=== PATIENT | male | born 1990 | race Hispanic/Latino ===

== ENCOUNTER 2024-08-01 06:32 | Inpatient (IN) | payer OTHER ==
[2024-08-01] VITALS (11 sets, daily range): BP systolic 128–155; BP diastolic 55–82; PULSE 81–115; RESP 18–20; TEMP 97.8–101.6; O2SAT 94–100
[~2024-08-01] VITALS: Ht 170.2 cm; Wt 167.8 kg
[2024-08-01] MEDS: ONDANSETRON HCL INJ 2MG/ML 2ML 2 MG/ML VIAL IV PRN (06:53)
[2024-08-01] MEDS: SODIUM CHLORIDE 0.9% 1000ML 1,000 ML IV STA (06:55)
[2024-08-01] MEDS: ONDANSETRON HCL 4 MG ORAL DISINTEGRATING TAB PO ONE (06:55)
[2024-08-01 07:00] LABS: BASOPHILS % 0.2 % (0.0-1.0); EOSINOPHILS # (AUTO) 0.2 (0.0-0.4); EOSINOPHILS % 1.8 % (0.0-6.0); HEMATOCRIT 44.4 % (38.2-49.6); HEMOGLOBIN 14.1 g/dL (14.0-18.0); LYMPHOCYTES % 7.7 % (18.0-39.1); MEAN CORPUSCULAR HEMOGLOBIN 32.1 pg (28-32); MEAN CORPUSCULAR HGB CONC 31.8 g/dL (31-35); MEAN CORPUSCULAR VOLUME 101.1 fL (81-99); MONOCYTES # (AUTO) 0.6 (0.2-0.8); MONOCYTES % 4.8 % (4.4-11.3); NEUTROPHILS # (AUTO) 10.7 (2.1-6.9); NEUTROPHILS % 85.1 % (38.7-80.0); PLATELET COUNT 144 x10e3/uL (140-360); RED BLOOD COUNT 4.39 x10e6/uL (4.3-5.7); RED CELL DISTRIBUTION WIDTH 12.5 % (11.7-14.4); WHITE BLOOD COUNT 12.55 x10e3/uL (4.8-10.8)
[2024-08-01 07:21] LABS: ALBUMIN 3.4 g/dL (3.5-5.0); ALBUMIN/GLOBULIN RATIO 0.6 (0.8-2.0); ANION GAP 22.5 mmol/L (8-16); BILIRUBIN,TOTAL 1.1 mg/dL (0.2-1.2); CALCIUM 9.3 mg/dL (8.4-10.2); CREATININE, SERUM 0.81 mg/dL (0.72-1.25); POTASSIUM 3.5 mmol/L (3.5-5.1)
[2024-08-01] MEDS ORDERED: IOPAMIDOL 370 MG/ML 100 ML INFUS..BTL INJ ONE (07:26)
[2024-08-01] MEDS: HALOPERIDOL LACTATE 5 MG/ML VIAL IV ONE (08:34)
[2024-08-01] MEDS ORDERED: BELLADONNA ALK/PHENOBARBITAL 5 ML UDC ONE (08:43)
[2024-08-01] MEDS: LIDOCAINE VISC 2% SOLN 15 ML UDC PO ONE (08:49)
[2024-08-01] MEDS: BELLADONNA ALK/PHENOBARBITAL 5 ML UDC PO STA (08:49)
[2024-08-01] MEDS: MAGNESIUM/ALUMINUM/SIMETHICONE 30 ML UDC PO ONE (08:49)
[2024-08-01] MEDS ORDERED: HEPARIN SOD/DEXTROSE 5% 25000 UNIT/250 ML BAG IV SCH (09:00)
[2024-08-01 09:15] LABS: INR 1.09; PROTHROMBIN TIME 14.8 seconds (11.9-14.5)
[2024-08-01] MEDS ORDERED: ONDANSETRON HCL INJ 2MG/ML 2ML 2 MG/ML VIAL IV PRN (09:15)
[2024-08-01] MEDS ORDERED: Morphine 4mg INJECTION 4 MG/ML INJ IV PRN (09:15)
[2024-08-01] MEDS: HEPARIN 25,000 UNIT/D5W 250ML 250 ML IV SCH (10:23)
[2024-08-01] MEDS ORDERED: SIMETHICONE 80 MG CHEW PO PRN (13:45)
[2024-08-01] MEDS ORDERED: POTASSIUM CHLORIDE 20 MEQ TAB CR PO PRN (13:45)
[2024-08-01] MEDS ORDERED: ALBUTEROL/IPRATROPIUM 3 ML NEB NEB PRN (13:45)
[2024-08-01] MEDS ORDERED: HYDRALAZINE HCL 20 MG/ML VIAL IV PRN (13:45)
[2024-08-01] MEDS ORDERED: ACETAMINOPHEN 325 MG TAB PO PRN (13:45)
[2024-08-01] MEDS ORDERED: LIDOCAINE 4% PATCH TP PRN (13:45)
[2024-08-01] MEDS ORDERED: DOCUSATE SODIUM 100 MG CAP PO PRN (13:45)
[2024-08-01] MEDS: METOCLOPRAMIDE HCL 10 MG/2ML VIAL IV SCH (14:15)
[2024-08-01] MEDS ORDERED: CHLORDIAZEPOXIDE HCL 25 MG CAP PO PRN (14:15)
[2024-08-01] MEDS ORDERED: DEXTROSE 50% SYRINGE 50 ML IV PRN (14:30)
[2024-08-01 14:45] LABS: OPIATES SCREEN,URINE NEGATIVE (NEGATIVE); PHENCYCLIDINE SCREEN,URINE NEGATIVE (NEGATIVE)
[2024-08-01 14:46] LABS: AMPHETAMINES SCREEN,URINE NEGATIVE (NEGATIVE); BENZODIAZEPINES SCREEN,URINE NEGATIVE (NEGATIVE); CANNABINOIDS SCREEN,URINE NEGATIVE (NEGATIVE); COCAINE SCREEN,URINE NEGATIVE (NEGATIVE); METHADONE SCREEN, URINE NEGATIVE (NEGATIVE)
[2024-08-01] MEDS ORDERED: MULTIVITAMINS- 12 INJECTION 10 ML, FOLIC ACID MDV 1 MG, THIAMINE HCL INJ 100 MG in SODI... IV SCH ×2 (15:30→18:00)
[2024-08-01] MEDS: INSULIN LISPRO 100 UNIT/1 ML 3ML VIAL SQ SCH (16:30)
[2024-08-01 16:56] LABS: CALCIUM 8.9 mg/dL (8.4-10.2); CREATININE, SERUM 0.78 mg/dL (0.72-1.25)
[2024-08-01] MEDS: MULTIVITAMINS- 12 INJECTION 10 ML, FOLIC ACID MDV 1 MG, THIAMINE HCL INJ 100 MG in SODI... IV SCH (17:41)
[2024-08-01] MEDS: SUCRALFATE 1 GM/10 ML SUSP PO SCH (17:41)
[2024-08-01] MEDS ORDERED: SODIUM CHLORIDE 0.9% 1000ML 1,000 ML IV PRN (19:15)
[2024-08-02] VITALS (8 sets, daily range): BP systolic 108–164; BP diastolic 49–83; PULSE 81–99; RESP 18–21; TEMP 98.6–101; O2SAT 94–96
[2024-08-02] MEDS: HEPARIN 25,000 UNIT/D5W 250ML 250 ML IV SCH ×2 (01:43→17:38)
[2024-08-02] MEDS ORDERED: PANTOPRAZOLE SOD 40 MG TABEC PO SCH (07:30)
[2024-08-02 08:33] LABS: BASOPHILS % 0.1 % (0.0-1.0); EOSINOPHILS % 0.4 % (0.0-6.0); HEMOGLOBIN 12.3 g/dL (14.0-18.0); MEAN CORPUSCULAR HEMOGLOBIN 31.9 pg (28-32); MEAN CORPUSCULAR HGB CONC 31.5 g/dL (31-35); MEAN CORPUSCULAR VOLUME 101.3 fL (81-99); MONOCYTES # (AUTO) 0.9 (0.2-0.8); NEUTROPHILS # (AUTO) 6.1 (2.1-6.9); NEUTROPHILS % 76.1 % (38.7-80.0); PLATELET COUNT 114 x10e3/uL (140-360); RED BLOOD COUNT 3.85 x10e6/uL (4.3-5.7); RED CELL DISTRIBUTION WIDTH 12.8 % (11.7-14.4); WHITE BLOOD COUNT 8.07 x10e3/uL (4.8-10.8)
[2024-08-02 09:00] LABS: ALBUMIN/GLOBULIN RATIO 0.7 (0.8-2.0); ANION GAP 15.4 mmol/L (8-16); BILIRUBIN,TOTAL 1.9 mg/dL (0.2-1.2); CALCIUM 7.8 mg/dL (8.4-10.2); CREATININE, SERUM 0.74 mg/dL (0.72-1.25); MAGNESIUM 1.4 MG/DL (1.3-2.1); TOTAL PROTEIN 7.4 g/dL (6.5-8.1)
[2024-08-02 09:01] LABS: POTASSIUM 3.4 mmol/L (3.5-5.1)
[2024-08-02 09:09] LABS: CHOL/HDL RATIO 5.2 (3.9-4.7)
[2024-08-02] MEDS ORDERED: IOPAMIDOL 370 MG/ML 100 ML INFUS..BTL INJ ONE (14:34)
[2024-08-02] MEDS ORDERED: SODIUM CHLORIDE 0.9% 100 ML ONE (14:34)
[2024-08-02] MEDS: POTASSIUM PHOSPHATE 15 MM in SODIUM CHLORIDE 0.9% 250ML 250 ML IV ONE (15:38)
[2024-08-02] MEDS: MAGNESIUM SULFATE 2GM/50ML 50 ML IV ONE (15:39)
[2024-08-02] MEDS ORDERED: HEPARIN SOD/DEXTROSE 5% 25000 UNIT/250 ML BAG IV SCH (17:15)
[2024-08-02] MEDS: CARVEDILOL 12.5 MG TAB PO SCH (17:19)
[2024-08-02] MEDS: MULTIVITAMINS- 12 INJECTION 10 ML, FOLIC ACID MDV 1 MG, THIAMINE HCL INJ 100 MG in SODI... IV SCH (17:35)
[2024-08-02] MEDS ORDERED: APIXABAN 5 MG TABLET PO SCH (18:00)
[2024-08-02 20:45] LABS: BASOPHILS % 0.4 % (0.0-1.0); EOSINOPHILS # (AUTO) 0.1 (0.0-0.4); EOSINOPHILS % 1.6 % (0.0-6.0); HEMATOCRIT 35.1 % (38.2-49.6); HEMOGLOBIN 10.7 g/dL (14.0-18.0); LYMPHOCYTES # (AUTO) 0.8 (1.0-3.2); MEAN CORPUSCULAR HEMOGLOBIN 31.4 pg (28-32); MEAN CORPUSCULAR HGB CONC 30.5 g/dL (31-35); MEAN CORPUSCULAR VOLUME 102.9 fL (81-99); MONOCYTES # (AUTO) 0.7 (0.2-0.8); MONOCYTES % 11.9 % (4.4-11.3); NEUTROPHILS % 71.9 % (38.7-80.0); PLATELET COUNT 96 x10e3/uL (140-360); RED BLOOD COUNT 3.41 x10e6/uL (4.3-5.7); RED CELL DISTRIBUTION WIDTH 12.8 % (11.7-14.4); WHITE BLOOD COUNT 5.56 x10e3/uL (4.8-10.8)
[2024-08-02 21:08] LABS: INR 1.46; PROTHROMBIN TIME 18.5 seconds (11.9-14.5)
[2024-08-02] MEDS: DIPHENHYDRAMINE HCL 25 MG CAP PO PRN (23:34)
[2024-08-02] MEDS: MELATONIN 5 MG TABLET PO PRN (23:35)
[2024-08-03] VITALS (8 sets, daily range): BP systolic 105–130; BP diastolic 56–76; PULSE 69–90; RESP 18–20; TEMP 98.1–99.7; O2SAT 94–98
[2024-08-03 05:41] LABS: ALBUMIN 2.7 g/dL (3.5-5.0); ALBUMIN/GLOBULIN RATIO 0.6 (0.8-2.0); BILIRUBIN,TOTAL 1.4 mg/dL (0.2-1.2); CALCIUM 7.4 mg/dL (8.4-10.2); CREATININE, SERUM 0.71 mg/dL (0.72-1.25)
[2024-08-03 06:01] LABS: MAGNESIUM 1.9 MG/DL (1.3-2.1); PHOSPHORUS 2.2 MG/DL (2.3-4.7)
[2024-08-03] MEDS: HEPARIN 25,000 UNIT/D5W 250ML 250 ML IV SCH ×2 (06:13→13:08)
[2024-08-03] MEDS ORDERED: POTASSIUM PHOSPHATE 15 MM in SODIUM CHLORIDE 0.9% 250ML 250 ML IV SCH (09:45)
[2024-08-03] MEDS: POTASSIUM PHOSPHATE 15 MM in SODIUM CHLORIDE 0.9% 250ML 250 ML IV ONE (11:11)
[2024-08-03] MEDS: DICYCLOMINE HCL 10 MG CAP PO SCH (17:39)
[2024-08-03] MEDS: POTASSIUM CHLORIDE 20 MEQ TAB CR PO ONE (17:40)
[2024-08-03 20:35] LABS: % IRON SATURATION 15 % (15-50); IRON 66 ug/dL (65-175); TOTAL IRON BINDING CAPACITY 428 ug/dL (261-478); TRANSFERRIN 306 mg/dL (174-364)
[2024-08-03] MEDS: DICYCLOMINE HCL 20 MG TAB PO SCH (22:08)
[2024-08-04 04:00] VITALS: BP 132/80; PULSE 74; RESP 20; TEMP 98; O2SAT 99
[2024-08-04 05:27] LABS: BASOPHILS % 0.3 % (0.0-1.0); EOSINOPHILS # (AUTO) 0.2 (0.0-0.4); EOSINOPHILS % 2.4 % (0.0-6.0); HEMATOCRIT 36.6 % (38.2-49.6); HEMOGLOBIN 11.6 g/dL (14.0-18.0); LYMPHOCYTES # (AUTO) 1.3 (1.0-3.2); MEAN CORPUSCULAR HEMOGLOBIN 31.7 pg (28-32); MEAN CORPUSCULAR HGB CONC 31.7 g/dL (31-35); MONOCYTES # (AUTO) 0.6 (0.2-0.8); MONOCYTES % 8.5 % (4.4-11.3); NEUTROPHILS # (AUTO) 5.1 (2.1-6.9); NEUTROPHILS % 70.4 % (38.7-80.0); PLATELET COUNT 125 x10e3/uL (140-360); RED BLOOD COUNT 3.66 x10e6/uL (4.3-5.7); RED CELL DISTRIBUTION WIDTH 12.8 % (11.7-14.4); WHITE BLOOD COUNT 7.18 x10e3/uL (4.8-10.8)
[2024-08-04 06:05] LABS: ALBUMIN 2.9 g/dL (3.5-5.0); ALBUMIN/GLOBULIN RATIO 0.7 (0.8-2.0); ANION GAP 13.3 mmol/L (8-16); BILIRUBIN,TOTAL 1.3 mg/dL (0.2-1.2); CALCIUM 7.9 mg/dL (8.4-10.2); CREATININE, SERUM 0.67 mg/dL (0.72-1.25); TOTAL PROTEIN 7.1 g/dL (6.5-8.1)
[2024-08-04 06:08] LABS: POTASSIUM 3.3 mmol/L (3.5-5.1)
[2024-08-04] MEDS ORDERED: SODIUM CHLORIDE 0.9% 1000ML 1,000 ML ONE (07:31)
[2024-08-04 08:00] VITALS: BP 132/80; PULSE 74; RESP 20; TEMP 98; O2SAT 99
[2024-08-04] MEDS: IRON SUCROSE 100 MG in SODIUM CHLORIDE 0.9% 100 ML IV SCH (08:25)
[2024-08-04] MEDS: GLIPIZIDE 2.5 MG TABCR PO SCH (08:25)
[2024-08-04 08:45] VITALS: BP 133/68; PULSE 80; RESP 18; TEMP 98.8; O2SAT 98
[2024-08-04 12:00] VITALS: BP 125/66; PULSE 75; RESP 16; TEMP 98.9; O2SAT 100
[2024-08-04 16:00] VITALS: BP 127/71; PULSE 73; RESP 18; TEMP 99.5; O2SAT 94
[2024-08-04 16:51] VITALS: BP 125/66; PULSE 78
[2024-08-05 10:02] LABS: HEPATITIS A ANTIBODY IGM (P) Negative; HEPATITIS B CORE IGM (P) Negative; HEPATITIS B SURFACE AG (P) Negative
[2024-08-05 10:03] LABS: HEPATITIS C ANTIBODY Non Reactive
[2024-08-08] MEDS ORDERED: SODIUM CHLORIDE 0.9% 1000ML 1,000 ML IV SCH (04:00)
== END 2024-08-04 18:36 | disposition home or self-care (01) | DRG 392 ==
LOC: ER 06:38 → ERHOLD 09:17 → MED/SURG 10:45 → OBSVTOIN 14:14
PROVIDERS: ADMIT Internal Medicine; ATTEND Internal Medicine
DX: K29.20 Alcoholic gastritis without bleeding (principal); I74.8 Embolism and thrombosis of other arteries; Z68.43 Body mass index [BMI] 50.0-59.9, adult; E87.20 Acidosis, unspecified; E66.01 Morbid (severe) obesity due to excess calories; Z98.84 Bariatric surgery status; Z96.89 Presence of other specified functional implants; F10.20 Alcohol dependence, uncomplicated; Y90.0 Blood alcohol level of less than 20 mg/100 ml; R16.2 Hepatomegaly with splenomegaly, not elsewhere classified; E11.65 Type 2 diabetes mellitus with hyperglycemia; Z79.84 Long term (current) use of oral hypoglycemic drugs; E87.8 Other disorders of electrolyte and fluid balance, not elsewhere classified; K76.0 Fatty (change of) liver, not elsewhere classified; D50.9 Iron deficiency anemia, unspecified; D69.6 Thrombocytopenia, unspecified; R50.9 Fever, unspecified; D72.829 Elevated white blood cell count, unspecified; R74.01 Elevation of levels of liver transaminase levels; Z71.3 Dietary counseling and surveillance; Z71.82 Exercise counseling
CPT/HCPCS: 36415; 71045; 74175; 74177; 76700; 80048; 80053; 80061; 80307; 80320; 82607; 82746; 82948; 83036; 83540; 83605; 83690; 83735; 84100; 84443; 84466; 85025; 85045; 85610; 85730; 87086; 93976; 94799; 99284; J1630; J1756; J2405; J2470; J2765; J3411; J3475; J7030; J7050; Q9967